=== PATIENT | male | born 2000 | race Two or more races ===

== ENCOUNTER 2022-08-31 09:39 | Emergency (ER) | payer OTHER ==
[~2022-08-31] VITALS: Ht 188 cm; Wt 108.9 kg
== END 2022-08-31 12:16 | disposition home or self-care (01) ==
LOC: ER 09:39
DX: M25.562 Pain in left knee (principal)

== ENCOUNTER 2025-03-22 10:08 | Emergency (ER) | payer OTHER ==
[~2025-03-22] VITALS: Ht 190.5 cm; Wt 108.9 kg
[2025-03-22] MEDS ORDERED: KETOROLAC TROMETHAMINE 60 MG VIAL IM ONE (11:00)
== END 2025-03-22 13:26 | disposition home or self-care (01) ==
LOC: ER 10:08
DX: M25.561 Pain in right knee (principal)
CPT/HCPCS: 73560; 96372; 99283; J1885